=== PATIENT | female | born 1950 | race Caucasian/White ===

== ENCOUNTER 2017-02-25 18:08 | Emergency (ER) | payer OTHER ==
[2017-02-25 18:17] VITALS: BP 174/86; TEMP 98; BMI 23.7
--- NOTE | 2017-02-25 18:50 | ED.PDOC ---
General ED Provider: Dr. CONG WEBER Chief Complaint: Laceration Stated Complaint: LACERATION RIGHT HAND Time Seen by Physician: 18:48 (SEE PHOTOS) Mode of Arrival: Walk-In Information Source: Patient Exam Limitations: No limitations Primary Care Provider: ESTEFANÍA MICHAEL Nursing and Triage Documentation Reviewed and Agree: Yes Skin Complaint Exam - Laceration/Upper Ext. Complaint/Exam Location of Injury: Right (HAND) Mechanism of Injury: Laceration Onset/Duration: 11 HOURS AGO Symptoms Are: Still present Initial Severity: Mild Current Severity: None Aggravating: None Alleviating: None Associated Signs and Symptoms: Denies: Fever, Chills, Erythema, Numbness, Tingling Differential Diagnoses: Laceration Review of Systems - Review Of Systems Constitutional: Reports: No symptoms Eyes: Reports: No symptoms Ears, Nose, Mouth, Throat: Reports: No symptoms Respiratory: Reports: No symptoms Cardiac: Reports: No symptoms GI: Reports: No symptoms : Reports: No symptoms Musculoskeletal: Reports: No symptoms Skin: Reports: Other (LACERATION) Neurological: Reports: No symptoms Endocrine: Reports: No symptoms Hematologic/Lymphatic: Reports: No symptoms All Other Systems: Reviewed and Negative Past Medical History - Past Medical History Previously Healthy: Yes Endocrine: Reports: None Cardiovascular: Reports: None Respiratory: Reports: None Hematological: Reports: None Gastrointestinal: Reports: None Genitourinary: Reports: None Neuro/Psych: Reports: None Musculoskeletal: Reports: None Cancer: Reports: None Last Menstrual Period: menopause - Surgical History General Surgical History: Reports: None - Family History Family History: Reports: None - Social History Smoking Status: Current every day smoker, Heavy tobacco smoker Hx Substance Use: No Alcohol Screening: None - Immunizations Tetanus Shot up to Date: No Physical Exam - Physical Exam Appearance: Well-appearing, No pain distress, Well-nourished Eyes: HANSEL, EOMI, Conjunctiva clear ENT: Ears normal, Nose normal, Oropharynx normal Respiratory: Airway patent, Breath sounds clear, Breath sounds equal, Respirations nonlabored Cardiovascular: RRR, Pulses normal, No rub, No murmur GI/: Soft, Nontender, No masses, Bowel sounds normal, No Organomegaly Musculoskeletal: Normal strength, ROM intact, No edema, No calf tenderness Skin: Warm, Dry (LACERATION RIGHT HAND) Neurological: Sensation intact, Motor intact, Reflexes intact, Cranial nerves intact, Alert, Oriented Psychiatric: Affect appropriate, Mood appropriate Procedures - Laceration/Wound Repair No standard instances Wound Description: Linear (1CM) Wound Length (cm): 0.8 CM Wound Width: 2MM Wound Depth: 2MM Wound Explored: Clean Wound Prep: Hibiclens Anesthesia: Lidocaine (PLAIN) Wound Repaired With: Sutures Suture Size and Type: 3 PROLENE Number of Sutures: 3 Critical Care Note - Critical Care Note Total Time (mins): 0 Course - Course Orders, Labs, Meds: Orders Category Date Time Status Lidocaine HCl/Pf [Lidocaine 1 % Amp 5 ml (Sutures)] MEDS 02/25/17 18:47 Stat 5 ml SUBCUT ONCE STA Vital Signs: Temp Pulse Resp BP Pulse Ox 02/25/17 18:08 98 F 73 16 174/86 H 95 Departure - Departure Time of Disposition: 18:49 Disposition: HOME SELF-CARE Discharge Problem: Laceration - injury Instructions: Laceration (ED) Condition: Good Pt referred to PMD for follow-up: No Additional Instructions: Please call your Family Physician as soon as possible to schedule a follow-up appointment. Allergies/Adverse Reactions: Allergies No Known Allergies Allergy (Unverified 02/25/17 18:14) Home Medications: Ambulatory Orders 1 [No Reported Medications] 02/25/17
[2017-02-25] MEDS: TENIVAC IM ONE (19:07)
[2017-02-25] MEDS: LIDOCAINE 1 % AMP 5 ML (SUTURES) ONE (19:13)
[2017-02-25] MEDS: LIDOCAINE 1 % AMP 5 ML (SUTURES) SUBCUT STA (19:13)
== END 2017-02-25 19:19 | disposition home or self-care (01) ==
LOC: ED 18:08
DX: S61.411A Laceration without foreign body of right hand, initial encounter (principal); F17.210 Nicotine dependence, cigarettes, uncomplicated; W45.8XXA Other foreign body or object entering through skin, initial encounter
CPT/HCPCS: 90471; 99283

== ENCOUNTER 2017-10-05 08:33 | Outpatient (CLI) | payer OTHER ==
--- NOTE | 2017-10-05 09:44 | MAMMO ---
EXAM: Digital screening mammogram with 3-D tomosynthesis and CAD HISTORY: Screening mammogram. COMPARISON: Mammogram 04/18/2016 and 12/28/2010 FINDINGS: There is scattered fibroglandular breast densities. Vascular calcifications are present. There has been interval development of a small cluster calcifications in the central outer left breas t. No associated soft tissue density is identified. The right breast is normal. IMPRESSION: New cluster of calcifications in the central left breast. BIRADS category 0: Needs further evaluation Recommendation: Left Diagnostic mammogram.
== END 2017-10-05 08:34 | disposition home or self-care (01) ==
LOC: RAD 08:33
PROVIDERS: ATTEND Nurse Practitioner Family
DX: Z12.31 Encounter for screening mammogram for malignant neoplasm of breast (principal)
CPT/HCPCS: 77067

== ENCOUNTER 2017-10-19 09:29 | Outpatient (CLI) ==
--- NOTE | 2017-10-19 10:38 | MAMMO ---
EXAM: Digital diagnostic left breast mammogram HISTORY: Left breast calcifications COMPARISON: Mammogram 10/05/2017 FINDINGS: Digital spot compression CC and MLO views of the left breast were performed. In the left superior lateral breast posterior depth, there is a cluster of amorphous and pleomorphic calcificatio ns. IMPRESSION: Left breast calcifications. This finding is suspicious. Tissue sampling recommended. BIRADS category 4, suspicious
== END 2017-10-19 09:30 | disposition home or self-care (01) ==
LOC: RAD 09:29
PROVIDERS: ATTEND Nurse Practitioner Family
DX: R92.8 Other abnormal and inconclusive findings on diagnostic imaging of breast (principal)

== ENCOUNTER 2018-05-25 17:12 | Inpatient (IN) ==
--- NOTE | 2018-05-25 18:18 | CT ---
EXAM: CT ABDOMEN AND PELVIS HISTORY: Recent treatment for urinary tract infection, bilateral flank pain. TECHNIQUE: CT abdomen and pelvis without intravenous contrast. Images were reconstructed using 3 mm section thickness. Reformations were prepared. COMPARISON: None FINDINGS: There is mild bilateral perinephric fat stranding. Kidneys were otherwise grossly unremarkable withi n limits of this unenhanced exam. No definite nephrolithiasis, cortical mass or hydronephrosis. Ure ters are clear and urinary bladder unremarkable. No focal hepatic or splenic lesions. Gallbladder, pancreas and adrenal glands within normal limits. Moderate vascular calcifications. Tiny sliding hiatal hernia. Normal appendix. A few distal colon diverticula. Prominent left ovary (3.4 cm). Uterus appears normal. There is no ascites. No ventra l hernia. The bones reveal moderate degenerative disc and facet disease of the lower spine. Lung ba ses reveal chronic interstitial changes. No pneumoperitoneum. IMPRESSION: 1. There is at least mild bilateral perinephric fat stranding which is nonspecific although could in dicate pyelonephritis. No obvious fluid collections/abscesses are seen within the renal parenchyma o n this unenhanced exam. No nephrolithiasis or hydronephrosis. Ureters are clear and urinary bladder unremarkable. 2. Prominent left ovary, nonspecific. Follow by ultrasound if indicated. 3. Moderate vascular calcifications. 4. Tiny sliding hiatal hernia. 5. Minimal distal colon diverticulosis.
--- NOTE | 2018-05-25 18:40 | ED.PDOC ---
General ED Provider: Dr. CONG WEBER Chief Complaint: Urinary Problem Stated Complaint: dysuria, suprapubic pain , back pain fever Time Seen by Physician: 17:12 (on bactrim x1 day not improving) Mode of Arrival: Walk-In Information Source: Patient Exam Limitations: No limitations Primary Care Provider: ALEXANDER MENCHACA Nursing and Triage Documentation Reviewed and Agree: Yes Does patient meet sepsis criteria?: Yes If yes, has appropriate treatment been initiated?: Yes System Inflammatory Response Syndrome: Not Applicable (temp on arrival 101.1) Sepsis Protocol: For patient's 13 years and over: Temp is 96.8 and below OR 101 and greater Pulse >90 BPM Resp >20/minute Acutely Altered Mental Status Are patient's symptoms suggestive of a new infection, such as: -Pneumonia -Skin, Soft Tissue -Endocarditis -UTI -Bone, Joint Infection -Implantable Device -Acute Abdominal Infection -Wound Infection -Meningitis -Blood Stream Catheter Infection -Unknown Complaint Exam - Complaint/Exam Patient Complains of: Reports: Dysuria Onset/Duration: 2 days Symptoms Are: Still present Timing: Constant Episodes of Voiding Over Last 12 Hours: 4 Initial Severity: Mild Current Severity: Mild Location of Pain: Reports: Flank Character: Reports: Dull Aggravating: Reports: Urination Alleviating: Reports: None Associated Signs and Symptoms: Reports: Fever, Dysuria. Denies: Diaphoresis, Back pain, Hematuria, Constipation, Blood in stool, Rectal pain, Appetite change , Nausea, Vomiting, Decreased urine output, Increased urine frequency, Increased thirst, Decreased activity, Lethargy, Abdominal Pain, Bubble bath use , Vaginal bleeding, Vaginal discharge, Genital swelling, Genital blisters, Retained foreign body Related History: Denies: Bubble bath use Last Voided: in the EMERGENCY ROOM VOIDED Ovarian Torsion Risk Factors: Reports: None Surgical Obstruction Risk Factors: Reports: None RH Status: Unknown Related Surgical History: Reports: None Abdominal Findings: Present: None Differential Diagnoses: Renal Colic, UTI, Other (PYLONEPHRITIS) Review of Systems - Review Of Systems Constitutional: Reports: Fever, Malaise Eyes: Reports: No symptoms Ears, Nose, Mouth, Throat: Reports: No symptoms Respiratory: Reports: No symptoms Cardiac: Reports: No symptoms GI: Reports: Abdominal pain (SUPRAPUBIC) : Reports: Dysuria Musculoskeletal: Reports: No symptoms Skin: Reports: No symptoms Neurological: Reports: No symptoms Endocrine: Reports: No symptoms Hematologic/Lymphatic: Reports: No symptoms All Other Systems: Reviewed and Negative Past Medical History - Past Medical History Previously Healthy: Yes Endocrine: Reports: None Cardiovascular: Reports: None Respiratory: Reports: None Hematological: Reports: None Gastrointestinal: Reports: None Genitourinary: Reports: None Neuro/Psych: Reports: None Musculoskeletal: Reports: None Cancer: Reports: None Last Menstrual Period: N/A - Surgical History General Surgical History: Reports: None - Family History Family History: Reports: None - Social History Smoking Status: Current every day smoker, Heavy tobacco smoker Hx Substance Use: No Alcohol Screening: None - Immunizations Tetanus Shot up to Date: Yes Physical Exam - Physical Exam Appearance: Well-appearing, No pain distress, Well-nourished Eyes: HANSEL, EOMI, Conjunctiva clear ENT: Ears normal, Nose normal, Oropharynx normal Respiratory: Airway patent, Breath sounds clear, Breath sounds equal, Respirations nonlabored Cardiovascular: RRR, Pulses normal, No rub, No murmur GI/: Soft, Nontender, No masses, Bowel sounds normal, No Organomegaly Musculoskeletal: Normal strength, ROM intact, No edema, No calf tenderness Skin: Warm, Dry, Normal color Neurological: Sensation intact, Motor intact, Reflexes intact, Cranial nerves intact, Alert, Oriented Psychiatric: Affect appropriate, Mood appropriate Physician Notification - Case Discussed Physician Notified: UBALDO MARTINI Time of Notification: 18:47 Admit To: Inpatient Critical Care Note - Critical Care Note Total Time (mins): 0 Course - Course Hematology/Chemistry: 05/25/18 17:50 05/25/18 17:50 Orders, Labs, Meds: Lab Review 05/25/18 05/25/18 05/25/18 17:27 17:50 17:50 WBC 10.53 H RBC 3.73 L Hgb 11.3 L Hct 32.7 L MCV 87.7 MCH 30.3 MCHC 34.6 RDW Coeff of Celsa 12.7 Plt Count 213 Immature Gran % (Auto) 0.3 Neut % (Auto) 77.9 Lymph % (Auto) 12.8 [place] % (Auto) 8.2 Eos % (Auto) 0.3 Baso % (Auto) 0.5 Immature Gran # (Auto) 0.0 Neut # (Auto) 8.2 H Lymph # (Auto) 1.4 [place] # (Auto) 0.9 Eos # (Auto) 0.0 Baso # (Auto) 0.1 Sodium 134 L Potassium 3.5 Chloride 98 Carbon Dioxide 24 Anion Gap 15.5 BUN 14 Creatinine 0.97 Estimated GFR (MDRD) 57.00 BUN/Creatinine Ratio 14.43 Glucose 169 H Lactic Acid Calcium 9.0 Total Bilirubin 0.6 AST 22 ALT 27 Alkaline Phosphatase 78 Total Protein 7.0 Albumin 3.0 L Globulin 4.0 Albumin/Globulin Ratio 0.75 Urine Color Yellow Urine Clarity Clear Urine pH 6.0 Ur Specific [place] 1.020 Urine Protein 1+ Urine Glucose (UA) Negative Urine Ketones Negative Urine Blood Trace-intact Urine Nitrite Negative Urine Bilirubin Negative Urine Urobilinogen 1.0 Ur Leukocyte Esterase 1+ Urine Microscopic WBC 5-10 Ur Squamous Epith Cells 20-30 Urine Bacteria Trace 05/25/18 17:50 WBC RBC Hgb Hct MCV MCH MCHC RDW Coeff of Celsa Plt Count Immature Gran % (Auto) Neut % (Auto) Lymph % (Auto) [place] % (Auto) Eos % (Auto) Baso % (Auto) Immature Gran # (Auto) Neut # (Auto) Lymph # (Auto) [place] # (Auto) Eos # (Auto) Baso # (Auto) Sodium Potassium Chloride Carbon Dioxide Anion Gap BUN Creatinine Estimated GFR (MDRD) BUN/Creatinine Ratio Glucose Lactic Acid 8.8 Calcium Total Bilirubin AST ALT Alkaline Phosphatase Total Protein Albumin Globulin Albumin/Globulin Ratio Urine Color Urine Clarity Urine pH Ur Specific [place] Urine Protein Urine Glucose (UA) Urine Ketones Urine Blood Urine Nitrite Urine Bilirubin Urine Urobilinogen Ur Leukocyte Esterase Urine Microscopic WBC Ur Squamous Epith Cells Urine Bacteria Orders Category Date Time Status ACTIVITY .BR with BRP CARE 05/25/18 18:45 Active BLOOD GLUCOSE MONITORING ACCUCHECK Q6H CARE 05/25/18 18:45 Active GIVE HS SNACK 2100 CARE 05/25/18 18:46 Active INTAKE & OUTPUT Q8HR CARE 05/25/18 18:46 Active VITAL SIGNS Q8HR CARE 05/25/18 18:45 Active ADA 1800 TRAE. DIET DIETARY 05/25/18 Dinner Ordered HS SNACK DIETARY 05/25/18 Dinner Ordered BLOOD CULTURE (ED ONLY) Stat LAB 05/25/18 17:50 Received CBC W/ AUTO DIFF DAILY@0600 LAB 05/26/18 06:00 Ordered CBC W/ AUTO DIFF DAILY@0600 LAB 05/27/18 06:00 Ordered CBC W/ AUTO DIFF Stat LAB 05/25/18 17:50 Completed COMPREHENSIVE METABOLIC PANEL DAILY@0600 LAB 05/26/18 06:00 Ordered COMPREHENSIVE METABOLIC PANEL DAILY@0600 LAB 05/27/18 06:00 Ordered COMPREHENSIVE METABOLIC PANEL Stat LAB 05/25/18 17:50 Completed LACTIC ACID Stat LAB 05/25/18 17:50 Completed PROCALCITONIN Stat LAB 05/25/18 17:50 Received URINALYSIS C & S IF INDICATED Stat LAB 05/25/18 17:27 Completed URINE CULTURE Stat LAB 05/25/18 17:27 Received Ceftriaxone Sodium [Rocephin] 1 gm MEDS 05/25/18 19:00 Ordered 0.9 % Sodium Chloride [Sodium Chloride] 50 ml IV DAILY Lisinopril/Hydrochlorothiazide [Lisinopril-Hctz 10-12.5 MEDS 05/26/18 09:00 Ordered mg Tab] 1 tab PO DAILY Sodium Chloride 0.9% [Sodium Chloride] 1,000 ml MEDS 05/25/18 19:00 Ordered IV 75 mls/hr CT ABD/PEL WO RENAL STONE PROT Stat RADS 05/25/18 17:36 Completed Medications Generic Name Dose Route Start Last Admin Trade Name Freq PRN Reason Stop Dose Admin Non-Formulary Medication 1 tab 05/26/18 09:00 Lisinopril/Hydrochlorothiazide [Lisinopril-Hctz 10-12.5 Mg Tab] PO DAILY TAYLOR Vital Signs: Temp Pulse Resp BP Pulse Ox 05/25/18 17:12 101.1 F H 104 H 16 147/78 H 94 L Departure - Departure Time of Disposition: 18:47 Disposition: ADMITTED INPATIENT Discharge Problem: Urinary tract infectious disease, Urinary symptoms, Pyelonephritis Instructions: Urinary Tract Infection in Women (ED) Condition: Good Pt referred to PMD for follow-up: Yes IPMP verified?: No Additional Instructions: Please call your Family Physician as soon as possible to schedule a follow-up appointment. Allergies/Adverse Reactions: Allergies No Known Allergies Allergy (Unverified 05/25/18 17:16) Home Medications: Ambulatory Orders Clonidine HCl 0.2 mg PO DAILY 05/25/18 Lisinopril/Hydrochlorothiazide [Lisinopril-Hctz 10-12.5 mg Tab] 1 tab PO DAILY 05/25/18 Disposition Discussed With: Patient, Family
[2018-05-25] MEDS ORDERED: ROCEPHIN 1 GM in SODIUM CHLORIDE 50 ML IV SCH (19:00)
[2018-05-25] MEDS: SODIUM CHLORIDE 1,000 ML IV SCH (19:16)
[2018-05-25] MEDS ORDERED: ROCEPHIN ONE ×2 (19:38→22:04)
[2018-05-25] MEDS ORDERED: ROCEPHIN 1 GM in SODIUM CHLORIDE 50 ML IV STA (19:45)
[2018-05-25 21:31] VITALS: BMI 26.2
[2018-05-25] MEDS: CATAPRES PO SCH (22:52)
--- NOTE | 2018-05-26 08:26 | DI ---
EXAM: Chest two views HISTORY: Cough and smoking COMPARISON: None TECHNIQUE: Two views of the chest were performed FINDINGS: No airspace consolidation. Small nodular density projecting in the right lung apex. Ther e is no pleural effusion or pneumothorax. The heart is normal in size. The mediastinal contour is n ormal, noting atherosclerosis. There are no acute abnormalities of the bones. IMPRESSION: 1. No acute cardiopulmonary process. 2. Small nodular density projecting in the right lung apex, may represent vascular summation artifac t with true nodule not excluded. Recommend follow-up radiographs 3 months for reevaluation or CT for further evaluation given patient history.
[2018-05-26] MEDS ORDERED: METFORMIN PO SCH (09:00)
[2018-05-26] MEDS ORDERED: [UNRECOGNIZED DRUG - OTHER] PO SCH (09:00)
[2018-05-26] MEDS ORDERED: HCL PO SCH (09:00)
[2018-05-26] MEDS: GLUCOPHAGE XR 500MG PO SCH (09:24)
[2018-05-26] MEDS: HYDROCHLOROTHIAZIDE PO SCH (09:24)
[2018-05-26] MEDS: ZESTRIL PO SCH (09:25)
[2018-05-26] MEDS: SODIUM CHLORIDE 1,000 ML IV SCH (09:31)
--- NOTE | 2018-05-26 11:59 | US ---
EXAM: Ultrasound Transvaginal Non-obstetrical. HISTORY: Ovarian enlargement. COMPARISON: CT 1 day prior. TECHNIQUE: Dawkins scale and color doppler images with transvaginal probe. FINDINGS: The uterus measures 5.2 x 2.6 x 3.6 cm. Myometrial characterization is limited due to asmita hnical factors. Uterus is grossly normal in size and shape. Focal calcification in the uterus noted . Endometrial stripe does not appear thickened although is not well seen. Right ovary not identifie d. Left ovary measures 2.6 x 2.8 x 3.2 cm and contains a 4 x 2.9 x 3.2 cm thin-walled circumscribed anechoic mass with posterior enhancement. There is vascular flow in the left ovary. No pelvic fluid collections are seen. IMPRESSION: 1. Simple left ovarian cyst. Follow-up in 6-12 months recommended for reassessment. 2. Nonvisualized right ovary. 3. Normal uterine size and shape.
[2018-05-26] MEDS: CATAPRES PO SCH (20:16)
[2018-05-26] MEDS: ROCEPHIN 1 GM in SODIUM CHLORIDE 50 ML IV SCH (20:16)
--- NOTE | 2018-05-26 20:59 | CT ---
EXAM: CT scan thorax without contrast HISTORY: Abnormal chest x-ray COMPARISON: Two-view chest 05/25/2018 FINDINGS: Contiguous axial images were obtained through the thorax without contrast utilizing 5-mm. Sagittal and coronal reconstructions were imaged and reviewed. Thoracic inlet is unremarkable. Ther e are subcentimeter prevascular and pretracheal lymph nodes. The ascending aorta is ectatic measurin g 3.5 cm. Heart is normal in size with coronary artery calcification. The lungs are clear bilateral ly. There is a small hiatal hernia. There is a 3 mm nodule at the right apex. There is no infiltrat e or effusion.. Osteopenia and degenerative changes noted throughout the thoracic spine. IMPRESSION: Normal-sized cardiac silhouette with coronary calcification. Ectatic ascending aorta. 3 mm nodule right apex which merits follow-up comparative examination
[2018-05-27] MEDS: SODIUM CHLORIDE 1,000 ML IV SCH ×2 (00:52→14:00)
[2018-05-27] MEDS: ZESTRIL PO SCH ×2 (08:15→16:31)
[2018-05-27] MEDS: HYDROCHLOROTHIAZIDE PO SCH (08:15)
[2018-05-27] MEDS: GLUCOPHAGE XR 500MG PO SCH (08:15)
[2018-05-27] MEDS ORDERED: MYLANTA SUSP PO STA (12:48)
[2018-05-27] MEDS: CATAPRES PO SCH (20:52)
[2018-05-27] MEDS: ROCEPHIN 1 GM in SODIUM CHLORIDE 50 ML IV SCH (20:52)
[2018-05-28] MEDS: SODIUM CHLORIDE 1,000 ML IV SCH ×2 (03:36→18:39)
[2018-05-28] MEDS: GLUCOPHAGE XR 500MG PO SCH (08:36)
[2018-05-28] MEDS: ZESTRIL PO SCH (08:36)
[2018-05-28] MEDS: HYDROCHLOROTHIAZIDE PO SCH (08:36)
[2018-05-28] MEDS ORDERED: CATAPRES PO STA (18:14)
[2018-05-28] MEDS: CATAPRES PO SCH (20:47)
[2018-05-28] MEDS: ROCEPHIN 1 GM in SODIUM CHLORIDE 50 ML IV SCH (20:47)
[2018-05-29] MEDS ORDERED: TYLENOL PO STA (05:37)
[2018-05-29] MEDS ORDERED: TYLENOL RC ONE (05:39)
[2018-05-29] MEDS: CATAPRES PO SCH (09:39)
[2018-05-29] MEDS: HYDROCHLOROTHIAZIDE PO SCH (09:40)
[2018-05-29] MEDS: GLUCOPHAGE XR 500MG PO SCH (09:40)
[2018-05-29] MEDS: ZESTRIL PO SCH (09:41)
[2018-05-29] MEDS ORDERED: NORVASC PO SCH (13:00)
--- NOTE | 2018-05-29 13:06 | HP ---
DATE OF SERVICE: 05/25/18 I saw this patient initially in the emergency room prior to being transferred to the room. CHIEF COMPLAINT: Fever and chills. SOURCE OF HISTORY: The patient, as well as relatives. and daughter was in the room. HISTORY OF PRESENT ILLNESS: The patient claimed that she went to bed Tuesday night and had chills during the evening hours. She went to see her primary care provider on Tuesday and was told that she had a urinary tract infection and was prescribed Bactrim. The medication, according to the patient, was not helping and she is still febrile and feeling bad. She presented to the emergency room at [place] and the patient was noted to have a temperature of 101.1, pulse of 104, respiratory rate 16, blood pressure 147/78, oxygen saturation 94. CT scan of the abdomen and pelvis showed perinephric stranding, probably pyelonephritis. A urine was abnormal, but the patient had received Bactrim so it is not likely that the urine would give us a growth on culture. The patient was then admitted because of the fever and chills and abnormal urinalysis. The patient also had a prominent ovary and so an ultrasound will be requested. PAST PERSONAL HISTORY: The patient had previous breast biopsy, but was benign. The patient has hypertension, as well as diabetes mellitus. FAMILY HISTORY: Father had pancreatic carcinoma. Otherwise unremarkable. No diabetes. SOCIAL HISTORY: The patient is and resides with her . Children are grown. She is still smoking until today and smokes a pack of cigarettes. She, however, smoked less during the time that she is sick. Her appetite also has decreased. MEDICATIONS: Prior to this admission. Lisinopril/Hydrochlorothiazide 10/12.5 mg daily Clonidine 0.2 mg daily Metformin extended release 500 mg daily. ALLERGIES: No known drug allergies. REVIEW OF SYSTEMS: CONSTITUTIONAL: The patient has fever and chills and continued to have fever with fatigue in spite of the Bactrim that was prescribed the day before. SUPERVISOR WOUND: Denies any headaches or ataxia or syncopal episode or seizure disorder. The patient also is oriented times four. VISUAL: Denies double vision, blurred vision, or loss of vision. AUDITORY: Patient's hearing is adequate and denies any ringing of the ears or pain or drainage. RESPIRATORY: The patient has cough, but it is mostly nonproductive and smoking a pack of cigarettes a day and denies any hemoptysis. CARDIOVASCULAR: Denies any chest pain or diaphoresis or weakness secondary to chest pain. GASTROINTESTINAL: The appetite is decreased remarkably because of the fever and not feeling well. Denies any abdominal pain. Denies any problems swallowing solids or liquids otherwise and no diarrhea or change in bowel habits. GENITOURINARY: The patient has some discomfort with urination. No obvious pain. The patient had fever and does not feel well. MUSCULOSKELETAL: The patient did not have any significant joint pains. ENDOCRINE: The patient has type II diabetes mellitus. She is taking Metformin ER 500 mg daily. She denies any polyuria or polydipsia. INTEGUMENT: Denies any rash, pruritus or easy bruising. HEMATOLOGIC: No history of prolonged bleeding. No spontaneous ecchymosis. PSYCHIATRIC: Affect appears to be normal. The patient denies any anxiety or depression in her life. PHYSICAL EXAMINATION: GENERAL: We have a 68 year old female admitted to the hospital because of fever, chills and fatigue and this has persisted in spite of Bactrim. VITAL SIGNS: Temperature at the emergency room 101.1, pulse 104, blood pressure 147/78, respiratory rate 16, oxygen saturation 94 at room air. HEAD: Unremarkable. Scalp with no active dermatitis. FACE: Symmetrical and equal with no facial weakness and redness. EYES: Pupils equal/reactive to light. Conjunctivae slightly pale. Sclerae not icteric. MOUTH: Unremarkable. THROAT: No inflammation, tumors or exudate. EARS: Externally normal. NECK: No masses. No bruit. No tenderness. No rigidity. CHEST: Symmetrical and equal with good expansion with no remarkable tenderness. LUNGS: Breath sounds are heard in both sides. No rales or wheezing. HEART: Audible and regular with good tones. No murmurs. ABDOMEN: Soft with no remarkable tenderness. Bowel sounds are active. No masses palpable. EXTERNAL GENITALIA: Not examined. PELVIC AND RECTAL: Not performed. LOWER EXTREMITIES: Symmetrical and equal with no significant edema. Anterior tibial pulses are palpable. Posterior tibials difficult to find. UPPER EXTREMITIES: Symmetrical and equal. ASSESSMENT: 1. URINARY TRACT INFECTION PROBABLY PYELONEPHRITIS 2. DIABETES MELLITUS, CONTROL UNDETERMINED 3. HYPERTENSION, CONTROLLED. 4. CHRONIC TOBACCO USE AND ABUSE, PERSISTENT. THE PATIENT IS ADVISED TO STOP SMOKING. PLAN: 1. Antibiotics, Rocephin, which most likely will take care of the e.coli. Rocephin was given 2 grams initially at the emergency room. [place]
[2018-05-29 13:40] VITALS: BP 146/80; TEMP 97.7
--- NOTE | 2018-05-29 15:13 | PN ---
DATE OF VISIT: 05/27/18 The patient is alert and feeling better, except she complained of some burning in the epigastric area and was given 30 cc of Maalox. VITAL SIGNS: The patient's vital signs at 1 o'clock in the afternoon showed a temperature of 98.4, pulse rate 73, blood pressure 186/79, respiratory rate 16, oxygen saturation 98. LUNGS: Today is clear to auscultation in both sides and diminished. HEART: Audible and regular with good tones. This patient still is smoking. She did stop for a few months, but returned to the habit. She has been here now for two days and was thinking of stopping smoking again. She is encouraged to follow that desire. I did tell her about the ultrasound transvaginal of the pelvis. It did report a simple left ovarian cyst. Follow up in 6 to 12 months or reassessment. Nonvisualized right ovary, reason undetermined. Normal uterine size and shape. CT of the chest without contrast showed normal sized cardiac shadow with coronary artery calcification. Ectatic ascending aorta 3.5 cm. 3 mm nodule in the right apex. No infiltrate. Radiologist recommended follow up examination for comparison. He did not indicate as to how many months the follow should be done. I did advise the patient that I would print all of the x-rays that were done, including the ultrasound and give it to her. She had not had a PAP smear for sometime and no pelvic examination also for some time. The patient's medications is Catapres 0.1 mg at bedtime, Glucophage XR 500 mg daily, Hydrochlorothiazide 12.5 mg daily, Zestril 10 mg daily, Rocephin 1 gram daily. We will increase the medication of Zestril to 20 mg. This patient also will be given a minimal dose of Amlodipine at 2.5 mg. MTDD
--- NOTE | 2018-06-01 10:48 | PN ---
DATE OF VISIT: 05/28/18 The patient is seen today and the was in the room. I did read the report of the CT scan of the abdomen and pelvis, pelvic ultrasound, as well as the chest CT. She could give those reports to her family physician. There was some recommendations given by the radiologist. VITAL SIGNS: At 5:39 p.m. showed a temperature of 98.3, pulse 72, blood pressure 180/80 and respiratory rate 18, oxygen saturation 95 at room air. This patient's medications probably then will be given twice a day at 0.10 mg twice daily. She will be given one now and then repeat it at 9 o'clock this evening and then 9 o'clock in the morning. I do think that her blood pressure had been fluctuating on account of the one dose only once a day. This patient also had not smoked and so smoking has not effected the blood pressure. This patient might have some renal stenosis, since her blood pressure is not well controlled. The patient had been afebrile, except for the one on admission. This patient is kept tonight instead of discharging on this evening because of the uncontrolled blood pressure and most likely will be discharged tomorrow. The Lisinopril was increased from 10 to 20 mg. The blood cultures are still negative. Her urine culture did not grow since this patient already had an antibiotic on board. I did advise her to reduce the salt intake. Any sodas also has salt. She should avoid any sodas of any form since it has salt in it. Her renal panel this evening shows normal electrolytes and E GFR is 68, creatinine is 0.84, BUN 13. She did eat 100% of her dinner. [facility]
--- NOTE | 2018-06-13 10:50 | PN ---
DATE OF SERVICE: 05/26/18 OBJECTIVE: The patient's vital signs at 5:12 p.m., 05/26/18, showed a temperature 98.7, pulse 75, BP 168/89, respiratory rate 20, oxygen saturation 96. Temperature prior to that in the earlier morning hours were normal. CT chest showed a nodule and needs to be followed. I had explained this to the patient and this patient should have a followup with a chest CT at least in 3 months from today to see if there is any growth. After that, it may be repeated at 6 months and if there is none maybe one year. Radiologist did not give any guidance at all as to when to repeat. He just suggestd a repeat CT. The lungs were clear. Heart audible with good tones. The patient is feeling better. CBC showed normal WBC, 7,210 from 10,530 yesterday. Hemoglobin and hematocrit is down further from yesterday. Electrolytes near normal. Sodium is 135. Sugar 172, EGFR is now 72 from 57 yesterday. BUN 14, the same as yesterday. Creatinine is 0.80. Condition is stable and improved. MTDD
--- NOTE | 2018-06-19 15:24 | DS ---
DATE OF SERVICE: 05/29/18 PATIENT IDENTIFICATION: 68 year old female with chills and fever. The patient' s problem began Wednesday, May 23, 2018 at night with fever and chills. She presented to her primary care provider 05/24/2018 and was prescribed Bactrim DS for urinary tract infection. The patient did not feel well and so she presented to the emergency room at [facility] on 05/25/2018 and was found to have a urinary tract infection with fever of 101.1. Her pulse was 104. HOSPITAL COURSE: She was then admitted to the hospital after a CT scan of the abdomen showing some perinephric stranding probably pyelonephritis. The patient's initial CBC 05/25/2018 showed a WBC of 10,530, hemoglobin 11.3, hematocrit 33.7. CMP with sodium 134 and the rest are normal. Estimated GFR 57, BUN 14, creatinine 0.97, blood sugar 169, hemoglobin A1C 6.8. Procalcitonin 0.20. Urinalysis 1+ protein , negative nitrite, 1+ leukocyte esterase, WBC 5-10 squamous epithelial 20-30, trace bacteria. Urine culture and sensitivity was requested, but there was no growth, probably because of the Bactrim on board. The patient had another CBC on 05/26 and 05/27 showing decreasing hemoglobin and hematocrit on 05/26 and rising back to where it was on 05/27. The electrolytes has returned to normal and the blood sugar has more or less stayed about the same at 172 and 175 and 229 on 05/28/2018. Lactic acid was normal initially and the Albumin was low to begin on admission at 3.0 and was down to 2.6 and did rise to 2.8 and on 05/28/18 was 2.9. A repeat urinalysis on 2017 is now completely normal. Chest x-ray on 05/25/2018 was somewhat abnormal , so a chest CT was done on 05/26/18 with impression normal size cardiac shadow with coronary calcification, ectatic ascending aortic, 3 mm nodule right apex which merits follow up for comparison. There was no stated time line for the repeat. The patient was continued on her previous medications consisting of Clonidine 0.2 mg, Metformin extended release 500 mg XR daily, Lisinopril/ Hydrochlorothiazide 20/12.5 mg daily. The patient was given Ceftriaxone 2 grams initially. She was given 1 gram in the emergency room, so another gram was added soon after admission to the hospital. The blood pressure was uncontrolled so Amlodipine 2.5 mg was added and the Clonidine was divided into 0.1 mg twice a day instead of once a day. VITAL SIGNS: On the day of discharge were acceptable except for one occasion of 167/84. Her oxygen saturation had fluctuated between 94 to 98. The patient had been afebrile since 05/28/18 at 2:12 in the morning. Before that she had a 99.4 temperature. The blood pressures also were higher. GENERAL: The patient at the time of discharge was alert, ambulatory, afebrile. Temperature 97.7 at 1:38 p.m., pulse 60, blood pressure 146/80, respiratory rate 18, oxygen saturation 98 at room air. She feels better and not chilly. NECK: Not rigid. LUNGS: Clear to auscultation in both sides. HEART: Audible and regular with good tones. ABDOMEN: Soft with no remarkable tenderness. Bowel sounds are active. CVA percussion right and left were negative for any discomfort. I explained to the patient that her medication Clonidine is divided into 1/2 at 0.1 mg instead of 2 and now twice a day instead of .02 once daily. I do think that it would probably do a better control of the hypertension. The Lisinopril is of the same dosage 20/12.5 mg with the Hydrochlorothiazide, as well as the Metformin. Norvasc or Amlodipine 2.5 mg for blood pressure was added to the regimen. The patient elected to follow up with me instead of going back to her PCP and the patient was advised to see me 06/06/2018 at the office at 10 a.m. She was provided with the phone number just in case she changes her mind. The blood cultures were negative after five days and the urine culture showed no growth and this is probably again because of the Bactrim that is on board. FINAL DIAGNOSES: 1. PYELONEPHRITIS, IMPROVED TO RESOLVED 2. HYPERTENSION BETTER CONTROL 3. DIABETES MELLITUS CONTROLLED. A1C LESS THAN 7. PLAN: 1. See me 06/06/2018 and before if there is any concerns. The patient showed good understanding. TIME SPENT: GREATER THAN 30 MINUTES MTDD
== END 2018-05-29 16:22 | disposition home or self-care (01) | DRG 392 ==
LOC: ED 17:12 → MEDSURG A 19:06
PROVIDERS: ADMIT General Practice; ATTEND General Practice
DX: R10.30 Lower abdominal pain, unspecified (principal); N39.0 Urinary tract infection, site not specified; N12 Tubulo-interstitial nephritis, not specified as acute or chronic; M54.9 Dorsalgia, unspecified; R50.9 Fever, unspecified; E11.9 Type 2 diabetes mellitus without complications; I10 Essential (primary) hypertension; F17.210 Nicotine dependence, cigarettes, uncomplicated
CPT/HCPCS: 36415; 74176; 80053; 80061; 80069; 81001; 82962; 83036; 83605; 84145; 85025; 87040; 87086; 96365; 99285

== ENCOUNTER 2018-08-23 07:53 | Outpatient (CLI) ==
--- NOTE | 2018-08-23 08:58 | CT ---
EXAM: CT of the chest without contrast History: Follow-up lung nodules. Comparison: Chest CT 05/26/2018 Technique: Multiplanar CT images through the thorax were obtained without the administration of IV c ontrast Findings: Heart size is normal. No pericardial effusion. Coronary artery calcifications. No thorac ic aortic aneurysm. No axillary lymphadenopathy. No pathologically enlarged mediastinal lymph nodes . Evaluation for hilar lymph nodes is limited due to lack of contrast administration. Stable 3 mm r ight apical lung nodule. No developing lung nodules. No pleural fluid and no pneumothorax. Within the visualized upper abdomen. No acute findings. No acute osseous abnormalities. 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 Impression: 1. No acute intrathoracic process. 2. Stable benign 3 mm right apical lung nodule. No developing lung nodules. No additional follow-u p is needed for this nodule. 3. Coronary artery disease
== END 2018-08-23 07:54 | disposition home or self-care (01) ==
LOC: RAD 07:53
PROVIDERS: ATTEND Family Medicine
DX: R91.1 Solitary pulmonary nodule (principal)

== ENCOUNTER 2019-06-21 10:28 | Outpatient (CLI) | payer OTHER ==
--- NOTE | 2019-06-22 11:35 | MAMMO ---
EXAM: Bilateral digital screening mammogram (2-D and 3-D) History: Screening Comparison: Bilateral mammogram 10/05/2017 Findings: MLO and CC views of bilateral breasts demonstrate scattered fibroglandular breast parenchy ma. CAD was reviewed by the radiologist. Tomosynthesis was performed. There are no dominant masses , no suspicious microcalcifications and no architectural distortions. Biopsy clip within the left br east. Impression: Negative mammogram. Recommend followup routine screening mammography in 1 year. BI-RADS 1, negative
== END 2019-06-21 10:29 | disposition home or self-care (01) ==
LOC: RAD 10:28
PROVIDERS: ATTEND General Practice
DX: Z12.31 Encounter for screening mammogram for malignant neoplasm of breast (principal)
CPT/HCPCS: 36415; 80053; 80061; 81001; 85025

== ENCOUNTER 2019-06-21 12:41 | Outpatient (CLI) | payer OTHER | END 2019-06-21 12:42 | disposition home or self-care (01) | LOC: RHC-LAB 12:41 | PROVIDERS: ATTEND General Practice | DX: R89.9 Unspecified abnormal finding in specimens from other organs, systems and tissues (principal); I10 Essential (primary) hypertension; Z79.899 Other long term (current) drug therapy | CPT/HCPCS: 36415; 80053; 80061; 81001; 85025 ==

== ENCOUNTER 2019-06-22 16:59 | Outpatient (CLI) | payer OTHER | END 2019-06-22 17:00 | disposition home or self-care (01) | LOC: RHC-LAB 16:59 | PROVIDERS: ATTEND General Practice | DX: R89.9 Unspecified abnormal finding in specimens from other organs, systems and tissues (principal) | CPT/HCPCS: 36415; 83036 ==

== ENCOUNTER 2019-07-02 14:59 | Outpatient (CLI) ==
--- NOTE | 2019-07-03 08:04 | DI ---
EXAM: Chest two views HISTORY: Cough. FINDINGS: Compared to 05/25/2018. Heart size remains within normal limits. Atherosclerotic disease is again noted. Interstitial accentuation may be chronic. This appears similar to that previously seen. No definite consolidated pneumonia. Normal vascularity. No pneumothorax or pleural fluid. P reviously seen nodular opacity over the right upper lobe is not noticeably changed. IMPRESSION: 1. No consolidated pneumonia is definitely seen. 2. Stable right upper lobe nodular density may represent scarring.
== END 2019-07-02 15:00 | disposition home or self-care (01) ==
LOC: RAD 14:59
PROVIDERS: ATTEND General Practice
DX: R05 Cough (principal)